=== PATIENT | female | born 1970 | race Caucasian/White ===

== ENCOUNTER 2016-11-14 13:07 | Outpatient (CLI) ==
[2016-11-14 13:20] LABS: BASOPHILS # (AUTO) 0.1 K/uL (0-0.2); BASOPHILS % (AUTO) 0.7 % (0.0-3.0); EOSINOPHILS # (AUTO) 0.3 K/ul (0.0-0.7); EOSINOPHILS % (AUTO) 2.5 % (0.0-7.0); HEMATOCRIT 44.3 % (37.0-47.0); IMMATURE GRANULOCYTE % (AUTO) 0.4 % (0.0-5.0); LYMPHOCYTES # (AUTO) 2.7 K/uL (0.60-3.4); LYMPHOCYTES % (AUTO) 26.5 (10.0-50.0); MEAN CORPUSCULAR HEMOGLOBIN 31.6 pg (27.0-31.0); MEAN CORPUSCULAR HGB CONC 33.9 (31.8-35.4); MEAN CORPUSCULAR VOLUME 93.5 fl (81.0-99.0); MONOCYTES # (AUTO) 0.4 K/uL (0.4-2.0); MONOCYTES % (AUTO) 4.1 (0-10); NEUTROPHILS # (AUTO) 6.7 K/ul (2.0-6.9); NEUTROPHILS % (AUTO) 65.8; PLATELET COUNT 147 10^3/uL (140-440); RED BLOOD COUNT 4.74 10^6/ul (4.20-5.40); WHITE BLOOD COUNT 10.22 K/ul (4.6-10.2)
[2016-11-14 13:42] LABS: BILIRUBIN,URINE Negative (NEGATIVE); KETONES,URINE Negative (NEGATIVE); LEUKOCYTE ESTERASE ,URINE Negative (NEGATIVE); NITRITE,URINE Negative (NEGATIVE); PH,URINE 5.5 (5-9); PROTEIN,URINE Negative (NEGATIVE); URINE, BLOOD Negative (NEGATIVE)
[2016-11-14 13:46] LABS: ADD URINE MICROSCOPIC NO
[2016-11-14 13:51] LABS: OCCULT BLOOD INTERNAL QC 1 INTERNAL QC VALID; OCCULT BLOOD INTERNAL QC 2 INTERNAL QC VALID; OCCULT BLOOD INTERNAL QC 3 INTERNAL QC VALID; OCCULT BLOOD SAMPLE 1 NEGATIVE (NEGATIVE); OCCULT BLOOD SAMPLE 2 NO SPECIMEN RECEIVED (NEGATIVE); OCCULT BLOOD SAMPLE 3 NO SPECIMEN RECEIVED (NEGATIVE)
[2016-11-14 14:49] LABS: ALBUMIN 4.6 g/dL (3.4-5.0); ALBUMIN/GLOBULIN RATIO 1.31; ANION GAP 14.9; BILIRUBIN,TOTAL 0.43 mg/dL (0.00-1.20); BUN/CREATININE RATIO 17.07; CREATININE 0.82 mg/dL (0.60-1.30); POTASSIUM 3.9 mmol/L (3.5-5.10); TOTAL PROTEIN 8.1 g/dL (6.4-8.2)
== END 2016-11-14 13:08 | disposition home or self-care (01) ==
LOC: LAB 13:07
PROVIDERS: ATTEND General Practice
DX: Z12.12 Encounter for screening for malignant neoplasm of rectum (principal); Z79.899 Other long term (current) drug therapy
CPT/HCPCS: 36415; 80053; 80061; 81001; 82272; 85025

== ENCOUNTER 2017-02-08 14:15 | Outpatient (CLI) ==
[2017-02-08 14:17] LABS: FLU INTERNAL QC INTERNAL QC VALID; RAPID FLU A NEGATIVE (NEGATIVE); RAPID FLU B NEGATIVE (NEGATIVE)
== END 2017-02-08 14:16 | disposition home or self-care (01) ==
LOC: LAB 14:15
PROVIDERS: ATTEND General Practice
DX: R05 Cough (principal)
CPT/HCPCS: 87804

== ENCOUNTER 2017-05-02 14:12 | Outpatient (CLI) | END 2017-05-02 14:13 | disposition home or self-care (01) | LOC: FCC-LAB 14:12 | PROVIDERS: ATTEND General Practice | DX: M54.2 Cervicalgia (principal); M99.01 Segmental and somatic dysfunction of cervical region; R19.7 Diarrhea, unspecified; Z20.818 Contact with and (suspected) exposure to other bacterial communicable diseases | CPT/HCPCS: 87651; 87804 ==

== ENCOUNTER 2018-03-05 11:08 | Outpatient (CLI) | END 2018-03-05 11:09 | disposition home or self-care (01) | LOC: RHC-LAB 11:08 | PROVIDERS: ATTEND General Practice | DX: Z79.899 Other long term (current) drug therapy (principal); Z72.0 Tobacco use | CPT/HCPCS: 36415; 80053; 80061; 85025 ==

== ENCOUNTER 2018-11-03 13:43 | Outpatient (CLI) | END 2018-11-03 13:44 | disposition home or self-care (01) | LOC: RHC-LAB 13:43 | PROVIDERS: ATTEND General Practice | DX: R94.5 Abnormal results of liver function studies (principal); Z79.899 Other long term (current) drug therapy | CPT/HCPCS: 36415; 80076; 80306 ==